=== PATIENT | female | born 1990 | race African-American/Black ===

== ENCOUNTER 2020-05-04 13:17 | Emergency (ER) | payer OTHER ==
[~2020-05-04] VITALS: Ht 160 cm; Wt 72.1 kg
[2020-05-04 14:04] LABS: PLATELET COUNT 393 K/uL (152-353)
[2020-05-04 14:08] LABS: POTASSIUM 3.6 mmol/L (3.6-5.2); SODIUM 138 mmol/L (136-145)
[2020-05-04 16:00] VITALS: BP 117/78; TEMP 98
== END 2020-05-04 16:00 | disposition home or self-care (01) ==
LOC: ED 13:17
PROVIDERS: Family Medicine
DX: R00.0 Tachycardia, unspecified (principal); Z32.01 Encounter for pregnancy test, result positive; E86.0 Dehydration
CPT/HCPCS: 36415; 80053; 81000; 81025; 84702; 85027; 93005; 96360; 96375; 99284; J2405

== ENCOUNTER 2020-05-09 21:24 | Emergency (ER) | payer OTHER ==
[~2020-05-09] VITALS: Ht 160 cm; Wt 72.1 kg
[2020-05-09 21:34] VITALS: TEMP 96.9
[2020-05-09 22:12] LABS: PLATELET COUNT 293 K/uL (152-353)
[2020-05-09 22:22] LABS: POTASSIUM 4.1 mmol/L (3.6-5.2)
[2020-05-10 08:25] VITALS: BP 107/78
== END 2020-05-10 08:36 | disposition short-term general hospital (02) ==
LOC: ED 21:24
PROVIDERS: Emergency Medicine Emergency Medical Services
DX: J90 Pleural effusion, not elsewhere classified (principal); R91.8 Other nonspecific abnormal finding of lung field; Z20.828 Contact with and (suspected) exposure to other viral communicable diseases
CPT/HCPCS: 36415; 80053; 81000; 81025; 84702; 85027; 85379; 87635; 93005; 96360; 96361; 96375; 99285; J2405; U0003